=== PATIENT | male | born 1995 | race Caucasian/White ===

== ENCOUNTER 2016-12-17 15:24 | Emergency (ER) | payer SELFPAY ==
[2016-12-17] MEDS ORDERED: ISOVUE-370 76%-LOCM 1 ML ONE (16:34)
[2016-12-17 16:51] LABS: #Eosinphils 0.1 thou/uL (0.0-0.7); #Monocytes 0.6 thou/uL (0.11-0.59); #Neutrophils 4.3 thou/uL (1.40-6.50); %Basophils 0.6 % (0.0-1.0); %Eosinophils 1.1 % (0.0-10.0); %Lymphocytes 28.7 % (21.0-51.0); %Monocytes 8.9 % (0.0-10.0); Hematocrit 44.8 % (42.0-52.0); Mean Platelet Volume 7.1 fL (7.4-10.4); Red Blood Cell (RBC) Count 4.99 mill/uL (4.70-6.10)
[2016-12-17 17:04] LABS: Lactic Acid - Sepsis 1.9 mmol/L (0.5-2.2)
[2016-12-17 17:09] LABS: ALT (SGPT) 109 U/L (8-55); AST (SGOT) 104 U/L (5-34); Alkaline Phosphatase 66 U/L (40-150); Anion Gap 16 mmol/L (10-20); BUN (Urea Nitrogen) 10 mg/dL (8.9-20.6); Bilirubin, Total 0.6 mg/dL (0.2-1.2); CK (CPK) 172 U/L (30-200); Calc. Creatinine Clearance 0 mL/min (70-130); Calcium 9.7 mg/dL (7.8-10.44); Carbon Dioxide 24 mmol/L (22-29); Chloride 103 mmol/L (98-107); Estimated GFR-MDRD Greater than 90; Globulin 3.2 g/dL (2.4-3.5); Protein, Total 7.7 g/dL (6.0-8.3)
--- NOTE | 2016-12-17 17:44 | RAD ---
LEFT LEG TWO VIEWS: History: Injury. Left leg pain. FINDINGS/IMPRESSION: The left tibia and fibula are intact. POS: [facility]
--- NOTE | 2016-12-17 17:46 | RAD ---
LEFT KNEE FOUR VIEWS: 12/17/16 HISTORY: Injury, left knee pain. FINDINGS/IMPRESSION: No fracture or dislocation is seen. POS: [facility]
--- NOTE | 2016-12-17 17:48 | RAD ---
LEFT FEMUR TWO VIEWS: 12/17/16 HISTORY: Injury, left thigh pain. FINDINGS/IMPRESSION: The left femur is intact. POS: [facility]
[2016-12-17] MEDS ORDERED: Acetaminophen 500 MG TAB ONE (19:47)
--- NOTE | 2016-12-17 20:35 | CT ---
CT CHEST WITH CONTRAST CT ABDOMEN AND PELVIS WITH CONTRAST CT THORACIC SPINE WITH CONTRAST CT LUMBAR SPINE WITH CONTRAST: Indication: Post-traumatic pain. FINDINGS: The lungs are grossly clear aside from mild volume loss. There is no pleural effusion or pneumothora x. There is no evidence of thoracoabdominal aortic aneurysm. No retroperitoneal hemorrhage. Low atte nuation of the hepatic parenchyma may be on the basis of phase of enhancement versus hepatic steatos is. Contrast media is seen within the bilateral urinary systems. There is no evidence of compression fracture or significant subluxation of the thoracolumbar spine. IMPRESSION: No definite acute post-traumatic sequellae. Findings called to Nurse Practitioner, Rosanne Howardvinita at 1735 hours, 12-17-16. Code CR POS: [facility]
--- NOTE | 2016-12-17 21:13 | ULT ---
ULTRASOUND EXTREMITY NONVASCULAR LIMITED: History: 21-year-old male with injury, left knee pain. Abnormal CT scan. FINDINGS: Sonographic evaluation of the soft tissues of the medial aspect of the right distal thigh demonstrat es 1.8 x 0.4 x 1.5 cm focal echogenic area which demonstrates no vascularity or vascular connection. This likely represents a soft tissue hematoma. POS: [facility]
--- NOTE | 2016-12-17 21:37 | CT ---
CTA ABDOMEN AND PELVIS CTA RUN OFF LOWER EXTREMITIES 3D VOLUME RENDERING: Clinical history: Post-traumatic pain. FINDINGS: The abdominal aorta is normal in caliber. No aneurysmal dilatation or periaortic hematoma. Evaluation of each common iliac, iliac bifurcation, and femoral artery reveals appropriate patency. CTA run off reveals patent superficial femoral arteries bilaterally, patent popliteal arteries bilat erally, as well as contract opacification of the trifurcation below the level of the knee bilaterall y to the level of the high ankle. Arterial system is difficult to reliably assess distally due to sm all size and decreased distal contrast opacification. IMPRESSION: 1. No evidence of post-traumatic aortic occlusive or aneurysmal dilatation. 2. Three vessel run off is seen to the level of the high ankle bilaterally. 3. Incidental note of enlargement of left inguinal lymph nodes. There is also a patchy nodular soft tissue density of the medial right thigh. Component of this could relate to adenopathy. Localized so nographic imaging of the medial right thigh may prove useful to assess for potential vascular pathol ogy/injury in light of patient's history of injury. Ultrasound will help to discern between vascular process versus adenopathy, particularly in light of the inguinal adenopathy. POS: [facility]
== END 2016-12-17 20:18 | disposition home or self-care (01) ==
LOC: ERS 15:24
DX: S80.12XA Contusion of left lower leg, initial encounter (principal); M54.5 Low back pain; I10 Essential (primary) hypertension; F17.210 Nicotine dependence, cigarettes, uncomplicated; F17.220 Nicotine dependence, chewing tobacco, uncomplicated; W23.0XXA Caught, crushed, jammed, or pinched between moving objects, initial encounter
CPT/HCPCS: 71260; 74177; 75635; 76882; 80053; 82550; 83605; 85025; 96360